=== PATIENT | male | born 1990 | race Hispanic/Latino ===

== ENCOUNTER 2016-04-21 12:23 | Emergency (ER) | payer OTHER ==
[~2016-04-21] VITALS: Ht 167.6 cm; Wt 110.2 kg
[~2016-04-21 12:23] MED LIST: ATRIPLA 600 MG-1 TAB PO; AUGMENTIN 875 M1 TAB PO; AUGMENTIN 875-1 EACH PO; CIPRODEX OTIC7.5 ML OT; GENVOYA TABLET1 EACH PO; HYDROCODON-ACE1 EAC2 PO; IBUPROFEN600 M1 PO
--- NOTE | 2016-04-21 13:12 | ED HAND/WRIST INJURY COMPLAINT ---
History of Present Illness General Chief Complaint: Hand or Wrist Injury Stated Complaint: WRIST PAIN Source: patient, old records Exam Limitations: no limitations Vital Signs & Intake/Output Vital Signs & Intake/Output Vital Signs Date Time Temp Pulse Resp B/P Pulse O2 O2 Flow FiO2 Ox Delivery Rate 04/21 1237 97.9 59 20 113/75 98 Room Air Allergies Coded Allergies: shellfish derived (ALLERGY TESTED POSITIVE 12/31/15) Uncoded Allergies: DUST (Severe, SNEEZING A LOT 12/29/14) Reconcile Medications Amoxicillin/Potassium Clav (Augmentin 875-125 Tablet) 875 MG-125 MG TABLET 1 TAB PO BID OTITIS MEDIA Ciprofloxacin HCl/Dexameth (Ciprodex Otic Suspension) 0.3 %-0.1 % DROPS.SUSP 4 GTT OT BID EAR INFECTION Elviteg/Shital/Emtric/Tenofo Ala (Genvoya Tablet) 1 EACH TABLET 1 TAB PO DAILY ANTIVIRAL (Reported) Hydrocodone/Acetaminophen (Hydrocodon-Acetaminophen 5-325) 5 MG-325 MG TABLET 1-2 TAB PO Q4-6 PRN PRN PAIN Ibuprofen 600 MG TABLET 1 TAB PO TID PRN PAIN with food Ibuprofen 800 MG TABLET 1 TAB PO Q6PRN PRN pain Prednisone 20 MG TABLET 1 TAB PO BID tendonitis Tramadol HCl (Ultram) 50 MG TABLET 1-2 TAB PO Q6PRN PRN severe pain Triage Note: RECEIVED 26 YO MALE C/O INJURED RIGHT WRIST A FEW WEEKS AGO, GOT BETTER, BUT 3 DAYS AGO IT STARTED GETTING WORSE. Triage Nurses Notes Reviewed? yes Duration: week(s):, continues in ED, getting worse Timing: recent history Injury Environment: work Severity: moderate Pain/Injury Location: Right: Wrist. Context: pushing shopping carts Method of Injury: work Modifying Factors: Improves With: immobilization. Worsens With: movement. Associated Symptoms: GCS 15 since, stiffness HPI: 2 weeks prior to admission patient complains of right wrist pain worse with dorsiflexion resolving with Tylenol and rest. 3 days prior to admission pain recurred and became worse. There is no known trauma. 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. He denies fever chills nausea vomiting diarrhea abdominal pain chest pain shortness breath headache dysuria rash bleeding change in motor sensory function. He is right-hand dominant Past History Travel History Traveled to [place] past 21 day No Medical History Any Pertinent Medical History? 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 No Review of Systems Review of Systems Constitutional: Reports: no symptoms. EENTM: Reports: no symptoms. Respiratory: Reports: no symptoms. Cardiovascular: Reports: no symptoms. GI: Reports: no symptoms. Genitourinary: Reports: no symptoms. Musculoskeletal: Reports: see HPI, joint pain. Skin: Reports: no symptoms. Neurological/Psychological: Reports: no symptoms. Hematologic/Endocrine: Reports: no symptoms. Immunologic/Allergic: Reports: no symptoms. All Other Systems: Reviewed and Negative Physical Exam Physical Exam General Appearance: well developed/nourished, alert, awake, anxious, mild distress Head: atraumatic, normal appearance Eyes: Bilateral: normal appearance, PERRL, EOMI. Ears, Nose, Throat: normal pharynx, normal ENT inspection, hearing grossly normal Neck: normal inspection, supple, full range of motion, no midline tenderness Cardiovascular/Respiratory: normal breath sounds, normal peripheral pulses, regular rate/rhythm, no respiratory distress Back: normal inspection, normal range of motion, no vertebral tenderness Shoulder Left: normal range of motion, normal inspection Shoulder Right: normal range of motion, normal inspection Elbow Left: normal range of motion, normal inspection Elbow Right: normal range of motion, normal inspection Forearm Left: normal range of motion, normal inspection Forearm Right: normal range of motion, normal inspection Wrist Left: normal range of motion, normal inspection Wrist Right: normal inspection, tenderness, soft tissue tenderness, limited range of motion Hand Left: normal inspection, normal range of motion Hand Right: normal inspection, normal range of motion Reflexes: 2+: bicep (R), bicep (L), tricep (R), tricep (L). Neurologic/Tendon: normal sensation, normal motor functions, normal tendon functions Skin: intact, normal color, warm/dry Lymphatic: no anterior cervical kevon Progress Differential Diagnosis: sprain, tenosynovitis Plan of Care: Orders Procedure Date/time Status Durable Medical Equipment 04/21 133 Active Diagnostic Imaging: Viewed by Me: Radiology Read. Discussed w/RAD: Radiology Read. Radiology Impression: no acute abnormality, no fracture, no dislocation, no foreign body seen Departure Departure Time of Disposition: 1333 Disposition: HOME OR SELF CARE Condition: Stable Clinical Impression Primary Impression: Tendonitis of wrist, right Referrals: MELISSA HART MD Call for orthopedic follow up Departure Forms: Customer Survey Employee Industrial Accident General Discharge Information Prescriptions: Current Visit Scripts Prednisone 1 TAB PO BID #10 TAB Ibuprofen 1 TAB PO Q6PRN PRN pain #50 TAB Tramadol HCl (Ultram) 1-2 TAB PO Q6PRN PRN severe pain #30 TAB
[2016-04-21] MEDS ORDERED: PREDNISONE20 M1 PO (13:15)
[2016-04-21] MEDS ORDERED: IBUPROFEN800 M1 PO (13:15)
[2016-04-21] MEDS ORDERED: ULTRAM50 M1 PO (13:15)
--- NOTE | 2016-04-21 13:25 | RADIOLOGY REPORT ---
EXAMINATION: XR WRIST, RIGHT CLINICAL INFORMATION: 26-year-old man with recent injury and pain. COMPARISON: Report of prior films from 12/29/2014 TECHNIQUE: AP, lateral, and oblique views of the right wrist. FINDINGS: The bones and soft tissues are normal. No fracture. Alignment is anatomic with normal joint spaces. No erosions or abnormal soft tissue calcifications. IMPRESSION: Normal right wrist.
[2016-04-21 13:42] VITALS: BP 150/85
== END 2016-04-21 13:43 ==
LOC: ERH 12:23
DX: M77.8 Other enthesopathies, not elsewhere classified (principal)
CPT/HCPCS: 73110-RT

== ENCOUNTER 2017-10-08 10:51 | Emergency (ER) | payer OTHER ==
[~2017-10-08] VITALS: Ht 170.2 cm; Wt 102.5 kg
[~2017-10-08 10:51] MED LIST changes: +IBUPROFEN800 M1 PO; +PREDNISONE20 M1 PO; +ULTRAM50 M1 PO
--- NOTE | 2017-10-08 12:56 | ED THROAT/DENTAL COMPLAINT ---
History of Present Illness General Chief Complaint: General Adult Stated Complaint: SENT BY URGENT CARE FOR EVAL, ?FOOD STUCK Source: patient Exam Limitations: no limitations Vital Signs & Intake/Output Vital Signs & Intake/Output Vital Signs Date Time Temp Pulse Resp B/P B/P Pulse O2 O2 Flow FiO2 Mean Ox Delivery Rate 10/09 0058 98.0 78 20 109/73 98 10/08 2250 50 16 103/58 98 Room Air 10/08 2145 54 16 102/53 97 Room Air 10/08 2105 72 16 101/55 100 Non ReBreather 10/08 2014 98.0 57 14 121/73 98 Room Air 10/08 1708 54 18 136/73 99 Room Air 10/08 1328 98 Room Air 10/08 1107 98.2 94 18 120/68 98 Room Air ED Intake and Output 10/09 0000 10/08 1200 Intake Total 120 Output Total Balance 120 Intake, Oral 120 Patient 226 lb Weight Weight Reported by Patient Measurement Method Allergies Coded Allergies: shellfish derived (ALLERGY TESTED POSITIVE 12/31/15) Uncoded Allergies: DUST (Severe, SNEEZING A LOT 12/29/14) Reconcile Medications Elviteg/Shital/Emtric/Tenofo Ala (Genvoya Tablet) 1 EACH TABLET 1 TAB PO DAILY ANTIVIRAL (Reported) Famotidine (Pepcid) 20 MG TABLET 1 TAB PO DAILY GERD Fluconazole (Diflucan) 100 MG TABLET 1 TAB PO DAILY ESOPHAGEAL CANDIDIASIS DAY 1 TWO TABS THEN ONE TAB DAILY Ibuprofen 800 MG TABLET 1 TAB PO Q6PRN PRN pain Sucralfate (Carafate) 1 GRAM/10 ML ORAL.SUSP 10 ML PO 4 TIMES/DAY PRN GERD/ ESOPHAGITIS 1 hour before food and bedtime Triage Note: 27 YO MALE TO TRIAGE FOR EVAL ?FOOD STUCK IN [place] SINCE YESTERDAY. REPORTS HE WAS EATING BEEF JERKY AND FELLS IF SOMETHING GOT STUCK, REPORTS HES ABLE TO EAT/DRINK NOW BUT REPORTS PAIN TO LOWER THROAT. NO RESP DISTRESS. Triage Nurses Notes Reviewed? yes Onset: Abrupt Duration: constant Timing: recent history Injury Environment: home Severity: moderate Severity Numbers: 5 HPI: Patient is a 27-year-old male who presents emergency room seen that yesterday while eating beef jerky he had acute onset of pain to the esophageal region worsens patient has been complaining of pain upon swallowing eating food. Patient is able to tolerate secretions. Denies any shortness of breath or vomiting (Jeff Riley) Past History Travel History Traveled to [place] past 21 day No Medical History Any Pertinent Medical History? 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 No (Jeff Riley) Review of Systems Review of Systems Constitutional: Reports: no symptoms. EENTM: Reports: see HPI. Respiratory: Reports: no symptoms. Cardiovascular: Reports: no symptoms. GI: Reports: no symptoms. Genitourinary: Reports: no symptoms. Musculoskeletal: Reports: no symptoms. Skin: Reports: no symptoms. Neurological/Psychological: Reports: no symptoms. Hematologic/Endocrine: Reports: no symptoms. Immunologic/Allergic: Reports: no symptoms. All Other Systems: Reviewed and Negative (Jeff Riley) Physical Exam Physical Exam General Appearance: no apparent distress, alert, comfortable Head: atraumatic Eyes: Bilateral: normal appearance. Nose: normal inspection Mouth/Throat: normal mouth inspection, pharynx normal Neck: normal inspection, supple Cardiovascular/Respiratory: no respiratory distress Gastrointestinal: Nontender abdomen Neurologic/Psych: no motor/sensory deficits, awake Core Measures ACS in differential dx? No Sepsis Present: No Sepsis Focused Exam Completed? No (Jeff Riley) Progress Differential Diagnosis: carious tooth, epiglottitis, Ludwigs angina, meningitis, odontogenic abscess, laura-tonsillar abscess, pharyngeal for. body, stomatitis/ gingivitis, strep pharyngitis, tooth fracture Plan of Care: Orders Procedure Date/time Status Add-on Test (ER Only) 10/09 2103 Active HEPATIC FUNCTION PANEL 10/09 1919 Complete CBC WITHOUT DIFFERENTIAL 10/08 1917 Complete Laboratory Tests 10/08/171919: Total Bilirubin 0.4, Direct Bilirubin 0.2, AST 31, ALT 50, Alkaline Phosphatase 67, Total Protein 6.9, Albumin 4.1, CBC w Diff NO MAN DIFF REQ, RBC 4.53 L, MCV 92.0, MCH 30.5, MCHC 33.2, RDW 13.4, MPV 8.3, Gran % 66.2, Lymphocytes % 25.1, Monocytes % 6.4, Eosinophils % 2.1, Basophils % 0.2, Absolute Granulocytes 7.1 H, Absolute Lymphocytes 2.7, Absolute Monocytes 0.7 H, Absolute Eosinophils 0.2 , Absolute Basophils 0 Esophageal Foreign body impaction patient upon initial presentation is resting comfortably bedside patient was able to tolerate by mouth under my supervision patient still felt ODYNOPHAGIA Patient able tolerate secretions. GI cocktail was administered patient had improvement of symptoms however upon drinking fluids his symptoms were still persistent Due to history of present illness and exam findings or suspicion of esophageal foreign body versus esophagitis [address] Forte performed a scope in the emergency room in which she had unremarkable findings she is advised GI to be paged and patient administered PPI and glucagon [address] HIGGINS who advised patient received sublingual nitroglycerin 1729 patient had no improvement of his symptoms after nitroglycerin, by mouth intake still has pain upon swallowing to the substernal region, GI was paged Discussed patient with Dr. Latham who advised patient to receive CBC and imaging This was unremarkable Patient will receive upper endoscopy in the emergency room Dr. COLUNGA performed anoscopy and indicated to me that patient has concerns of esophageal candidiasis and advised patient to follow up in office and to be prescribed Diflucan as directed. LFTs unremarkable for Diflucan 213 patient is still recovering from anesthesia PT STILL RECOVERING DISCUSSED HANDOFF TO DR EDMONDSON. Diagnostic Imaging: Viewed by Me: Radiology Read. Radiology Impression: no acute abnormality, no fracture Hand-Off Endorsed To: Harish Edmondson DO Pending: other Comments: PATIENT: ZORA WILLAMS PRESENT AGE: 27 PATIENT ACCOUNT NO: [id number] : 92 LOCATION: [facility] ORDERING PHYSICIAN: Jeff FINCH SERVICE DATE: 10/08/17 EXAM TYPE: RAD - XRY-CHEST XRAY, TWO VIEWS EXAMINATION: CHEST 2 VIEWS CLINICAL INFORMATION: Foreign body sensation. COMPARISON: None. TECHNIQUE: PA and lateral views of the chest were obtained. FINDINGS: The cardiac silhouette is not enlarged. No radiopaque foreign bodies are identified. The mediastinal and hilar contours are unremarkable. There are neither pleural effusions nor pneumothoraces. There are no consolidations. The osseous structures are unremarkable. IMPRESSION: No evidence for acute disease. No demonstrable radiopaque foreign bodies. DICTATED BY: Morgan Goel MD DATE/TIME DICTATED:10/08/171839 ELEVATOR MECHANIC:MENDEL DATE/TIME TRANSCRIBED:10/08/171839 (Jeff Riley) Departure Departure Disposition: STILL A PATIENT Condition: Stable Clinical Impression Primary Impression: Esophageal candidiasis Secondary Impressions: Esophageal dysphagia Referrals: Patient Has No Primary Care Dr (PCP/Family) Additional Instructions: As discussed begin the prescription of Diflucan as directed, follow-up with Dr. Latham next week for further evaluation treatment. If symptoms worsen or if YOU develop any new concerning symptom return to emergency room. Prescriptions waiting at [facility] Departure Forms: Customer Survey General Discharge Information Prescriptions: Current Visit Scripts Sucralfate (Carafate) 10 ML PO 4 TIMES/DAY PRN GERD/ESOPHAGITIS #1000 ML 1 hour before food and bedtime Famotidine (Pepcid) 1 TAB PO DAILY #20 TAB Fluconazole (Diflucan) 1 TAB PO DAILY #15 TAB DAY 1 TWO TABS THEN ONE TAB DAILY (Jeff Riley) PA/FIELD HUMAN RESOURCES MANAGER Co-Sign Statement Statement: ED Attending supervision documentation- [] I saw and evaluated the patient. I have also reviewed all the pertinent lab results and diagnostic results. I agree with the findings and the plan of care as documented in the PA's/FIELD HUMAN RESOURCES MANAGER's documentation. [x] I have reviewed the ED Record and agree with the PA's/FIELD HUMAN RESOURCES MANAGER's documentation. [] Additions or exceptions (if any) to the PAs/FIELD HUMAN RESOURCES MANAGER's note and plan are summarized below: [] (Harish Edmondson DO)
--- NOTE | 2017-10-08 16:14 | Cons- Ear,Nose&Throat ---
General Information and HPI Consulting Request Date of Consult: 10/08/17 Requested By: Dr. Blanton Reason for Consult: Throat pain, difficulty swallowing, foreign body sensation in the throat Source of Information: patient Exam Limitations: no limitations History of Present Illness: 27-year-old male who was eating beef jerky yesterday when he experienced mid chest discomfort. This was yesterday in the middle of the day. The discomfort persisted. He was able to eat dinner which included chicken. This morning patient had doughnuts for breakfast. He is able to drink liquids without difficulty. Solids take a longer time to go down. Patient feels resistance in the mid chest when the solids go down. There has been hx of reflux over the last several years for which patient was treated in the past. No treatment lately. 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 Other Medical Hx: HIV Surgical History Pertinent Surgical History: non-contributory Review of Systems Review of Systems: noncontributory Exam & Diagnostic Data Vital Signs and I&O Vital Signs Date Time Temp Pulse Resp B/P B/P Pulse O2 O2 Flow FiO2 Mean Ox Delivery Rate 10/08 1328 98 Room Air 10/08 1107 98.2 94 18 120/68 98 Room Air Intake & Output 10/08 1600 10/08 0800 10/08 0000 10/07 1600 10/07 0800 10/07 0000 Intake Total 120 Output Total Balance 120 Intake, Oral 120 Patient 226 lb Weight Weight Reported by Patient Measurement Method Physical Exam: Well-developed, well-nourished male without acute distress Head: normocephalic, atraumatic Ears: Canals- clear; Tympanic Membranes- clear Nose: Septum- midline ; Turbinates- clear ; Airway-8% Oral cavity: Mucosa- clear Oropharynx: Posterior wall- clear; tonsils2+/2+, clear Neck: supple Fiberoptic laryngoscopy: Fiberoptic scope inserted via the right nostril Nasopharynx: Clear Hypopharynx: Base of tongueclear ; Valleculaclear, no salivary secretions pooling; Piriform sinuses-Clear, no salivary secretions pooling; posterior wall- intact; mucosa-clear Larynx: Epiglottis- intact; vocal cords-mobile; posterior commissure-clear; Esophageal inlet-intact Assessment/Plan Assessment/Plan 1. No evidence of foreign body within the hypopharynx or esophageal inlet 2. r/o esophageal abrasions/ reflux - as the source of patient's symptoms - Patient has been able to eat solids, following development of dysphagia, which would indicate that there is no foreign body within the esophagus - In addition, symptoms developed after he was chewing on the beef jerky, which points toward reflux as the source of patient's symptoms Recommend 1. IV glucagon to relax esophageal muscles 2. Prevacid for reflux control 3. Gastroenterology consult Consult Acknowledgment - Thank you for your consult request.
--- NOTE | 2017-10-08 18:46 | RADIOLOGY REPORT ---
EXAMINATION: CHEST 2 VIEWS CLINICAL INFORMATION: Foreign body sensation. COMPARISON: None. TECHNIQUE: PA and lateral views of the chest were obtained. FINDINGS: The cardiac silhouette is not enlarged. No radiopaque foreign bodies are identified. The mediastinal and hilar contours are unremarkable. There are neither pleural effusions nor pneumothoraces. There are no consolidations. The osseous structures are unremarkable. IMPRESSION: No evidence for acute disease. No demonstrable radiopaque foreign bodies.
[2017-10-08 19:39] LABS: ABSOLUTE BASOPHIL COUNT 0 /CUMM (0.0-0.2); ABSOLUTE EOSINOPHIL COUNT 0.2 /CUMM (0.0-0.7); ABSOLUTE GRANULOCYTE CT 7.1 /CUMM (1.4-6.5); ABSOLUTE LYMPH COUNT 2.7 /CUMM (1.2-3.4); ABSOLUTE MONOCYTE COUNT 0.7 /CUMM (0.10-0.60); BASOPHIL % 0.2 % (0.0-2.0); EOSINOPHIL % 2.1 % (0-5); GRANULOCYTE % 66.2 % (42.2-75.2); HEMATOCRIT 41.7 % (42-52); MEAN CORPUSCULAR HGB 30.5 PG (27.0-31.0); MEAN CORPUSCULAR HGB CONC 33.2 G/DL (33.0-37.0); MEAN PLATELET VOLUME 8.3 FL (7.4-10.4); PLATELET COUNT 238 /CUMM (130-400); RBC DISTRIBUTION WIDTH 13.4 % (11.5-14.5); RED BLOOD CELL CT 4.53 /CUMM (4.70-6.10); WHITE BLOOD CELL COUNT 10.7 /CUMM (4.8-10.8)
[2017-10-08] MEDS ORDERED: CARAFATE1 GM/10 M1 PO (20:52)
[2017-10-08] MEDS ORDERED: PEPCID20 M1 PO (20:53)
--- NOTE | 2017-10-08 21:23 | Proc Note Endoscopy ---
Endoscopy Procedure Medical History: unchanged Mental Status: alert/oriented Heart/Lung Eval Prior to Sedation: within normal limits Candidate for Sedation? Yes Procedure Date: 10/08/17 Procedure Type: EGD Blender Operator: MD Guillory Deborah E ASA Classification: III Indications: 1. Foreign Body Esophagus 2. Odynophagia Instrument: diagnostic gastroscope Meds Received: MAC Patient's Tolerance: good Complications: none Extent Reached: second part of duodenum Procedure: Note: Informed consent was obtained prior to procedure. Risks and benefits of procedure were discussed with patient. Potential complications discussed included perforation, bleeding, abdominal pain, and adverse reaction to medications. It was explained that iany or all of these complications could result in the need for extended hospitalization, emergency surgery, transfusion of packed red blood cells (with the risk of HIV or hepatitis virus), intubation with mechanical ventilation, and possible need for antibiotics. It was further explained that an existing tumor polyp or mucosal abnormality might not be identified at the time of the procedure thus resulting in a missed opportunity for early diagnosis and treatment of a gastrointestinal malignancy or disease with possible interval development of a gastrointestinal cancer or other disease with possible worsening of clinical condition in the interval between endoscopies. It was also discussed that complications are not limited to those listed above. Possible alternatives to endoscopic treatment or evaluation were discussed. All questions were answered. Continuous EKG and blood pressure monitors were attached. Supplemental oxygen was provided with O2 Sat monitoring. Patient was placed in the left lateral decubitus position. A surgical timeout was performed. All persons in the room were identified. All concerns were expressed and answered. A bite block was placed in the mouth and sedation was administered by anesthesia and titrated to comfort prior to starting the procedure. The Olympus upper endoscope was advanced under direct vision to the level of the third portion of the duodenum. Esophagus: The esophagus had diffuse tenacious white plaques throughout it's entirety. There was no foreign body noted. There were no ulcerations. The GE junction was identified and was normal. The Z line was non-displaced. Stomach: The stomach had a normal mucosal and vascular pattern throughout its entirety. Retroflexed view of the cardiofundic region revealed a normal mucosal and vascular pattern. There were normal rugae and normal distensibility. The pylorus was patent and easily intubated. Duodenum: The duodenum was fully examined from bulb down to the third portion. There was a normal mucosal vascular pattern throughout. With the endoscope in the forward-viewing position, it was slowly withdrawn and all areas were re-inspected and findings are as described previously. Patient tolerated the procedure well. EBL: None Specimens Removed: None Findings: Maribeth esophagitis Impression: Maribeth esophagitis Recommendations: 1. Diflucan 200 mg p.o. on day 1 then 100 mg p.o. daily to complete a 14-day course. 2. I have discussed the results of the procedure with the patient and his significant other. I have explained to her as patient is still slightly sedated that he should tell his infectious diseases doctor whom he sees tomorrow that he had an endoscopy and was found to have Maribeth esophagitis. She reports that his last viral load showed no detectable viruse. 3. The results of the procedure have been discussed with the patient and their next of kin. All questions have been answered. Patient has been instructed to call the office immediately for nausea, vomiting, abdominal pain, fever or shaking chills or any change in clinical condition. Patient has expressed understanding of discharge instructions and agreed to call for any questions or concerns. Patient has been given written instructions to this effect.
[2017-10-08] MEDS ORDERED: DIFLUCAN100 M1 PO (21:27)
[2017-10-09 00:58] VITALS: BP 109/73
== END 2017-10-09 01:06 ==
LOC: ERH 10:51
PROVIDERS: Physician Assistant
DX: B37.81 Candidal esophagitis (principal); R13.10 Dysphagia, unspecified
CPT/HCPCS: 71046; 96374; 96375; J0131; J1610; J2250; J3010